=== PATIENT | male | born 1965 | race Caucasian/White ===

== ENCOUNTER 2020-03-05 14:55 | Outpatient (CLI) | payer OTHER, SELFPAY ==
--- NOTE | ~2020-03-05 | XR_ITS ---
EXAMINATION: XR hand RT min 3V INDICATION: Right wrist and hand pain TECHNIQUE: Three views of the right hand are obtained. COMPARISON: None available FINDINGS: Cortical irregularity is present in the distal aspect of the lateral scaphoid. There is wid ening of the scapholunate joint. There appears to be mild proximal migration of the capitate. Osteoar thritis is noted at the radioscaphoid articulation and at the triscaphe joint. Mild osteoarthritis is also noted in multiple interphalangeal joints as well as at the first through third metacarpophalang eal joints. IMPRESSION: 1. 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 Orthopedic evaluation is recom mended. Reviewed, dictated and finalized at location A. IMPRESSION: 1. 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 Orthoped ic evaluation is recommended.
--- NOTE | ~2020-03-05 | XR_ITS ---
EXAMINATION: XR wrist RT min 3V INDICATION: Right wrist pain and swelling TECHNIQUE: Four views of the right wrist are obtained. COMPARISON: None available FINDINGS: Cortical irregularity is present in the distal aspect of the lateral scaphoid. There is wid ening of the scapholunate joint. There appears to be mild proximal migration of the capitate. Osteoar thritis is noted at the radius scaphoid articulation and at the triscaphe joint. IMPRESSION: 1. 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 Orthopedic evaluation is recom mended. 2. Possible prior fracture of the distal scaphoid. Reviewed, dictated and finalized at location A. IMPRESSION: 1. 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 Orthoped ic evaluation is recommended. 2. Possible prior fracture of the distal scaphoid.
== END 2020-03-05 14:56 | disposition home or self-care (01) ==
LOC: CHSIMG 15:00
PROVIDERS: PCP Internal Medicine; Visit Provider Internal Medicine
DX: M25.531 Pain in right wrist (principal)
CPT/HCPCS: 73110; 73130

== ENCOUNTER → 2020-11-24 00:48 | Outpatient (CLI) | payer OTHER, SELFPAY ==
[2020-11-24 17:56] LABS: SARS-CoV-2 RNA PCR Negative
== END ==
PROVIDERS: PCP Internal Medicine; Visit Provider Surgery
DX: Z01.812 Encounter for preprocedural laboratory examination (principal); Z20.822 Contact with and (suspected) exposure to COVID-19
CPT/HCPCS: C9803; U0003; U0005

== ENCOUNTER 2020-11-28 00:57 | Day surgery (SDC) | payer OTHER, SELFPAY ==
[2020-11-15 14:02] VITALS: BMI 34.7
--- NOTE | 2020-11-27 13:09 | P.PNAN_ITS ---
Anes - Initial Pre Proc Eval Procedure: Operation Date: 11/28/20 07:30 Proposed Procedures p Ventral Hernia Repair with Mesh - Sonny Zhu DO Date/Time: 11/27/20 13:09 Surgeon: Sonny Zhu DO Pre Op Diagnosis: ventral hernia Patient Data Age: 55 Gender: M Height: 1.68 m Weight: 97.72 kg Allergies Allergy/AdvReac Type Severity Reaction Status Date / Time No Known Allergies Allergy Verified 11/15/20 14:01 Home Medications Medication Instructions Recorded Confirmed Type ibuprofen 200 mg tablet 200 mg PO Q6H PRN 03/26/20 11/28/20 History losartan 25 mg HS 11/15/20 11/28/20 History Patient hx anesthesia problems: none Family hx anesthesia problems: none [facility] Past Medical History Medical History (Updated 11/27/20 @ 13:10 by Alexis Rivera DO) Hypertension Scapholunate advanced collapse of right wrist Vision loss Surgical History Surgical History No pertinent past surgical history Family History Family History Father Diabetes mellitus Grandparent Cerebrovascular accident Leukemia Other Arthritis Cancer Hypertension Social History Social History Smoking status: Never smoker Second hand tobacco smoke exposure: No Alcohol intake: current Drinks per week: 2 Substance use: never Substance use type: does not use Living arrangements: with family Additional occupation/education comments: [employer] Gender identity (if verbalized by the patient): Male Spiritual care concerns: No Anes - Eval Final PreProcedure Day of Procedure 11/27/20 13:09 Patient weight: obese Heart: regular rate and rhythm Lungs: clear to auscultation and normal air movement Airway: Mallampati scale class II Neurological: alert and oriented Last oral intake: >/= 8 hours ASA classification: III Emergent: no Anesthetic plan: proceed Anesthesia type and monitoring: general ETT and standard monitoring Informed Consent: The patient's anesthetic plan and its attendant risks and benefits were discussed with the patient/family/POA. Questions were solicited and answers provided to the satisfaction of the patient/family/POA.
[2020-11-28] VITALS (7 sets, daily range): BP systolic 83–157; BP diastolic 46–95; PULSE 50–69; RESP 10–20; TEMP 36.2; O2SAT 98–100
[2020-11-28] MEDS: ACETAMINOPHEN 500 MG TABLET 1000 MG PO (06:28)
[2020-11-28] MEDS: LACTATED RINGERS 1,000 ML 30 ML IV CONT ×2 (06:30→08:59)
[2020-11-28] MEDS: KETOROLAC 15 MG/ML VIAL (*BKC) IV PUSH (06:38)
--- NOTE | 2020-11-28 07:10 | PM.IMHP ---
H&P: HPI History of Present Illness Date/Time: 11/28/20 07:10 Chief Complaint: Hernia Narrative: 55 yo man presents for hernia repair. Denies any changes since last seen in office. Review of Systems Review of Systems: All systems reviewed & are unremarkable except as noted in HPI and below Constitutional: Constitutional: Denies chills, Denies fever(s), Denies headache(s) and Denies weight loss Eyes: Eyes: Denies change in vision ENT: Denies dizziness, Denies headache(s), Denies neck mass and Denies throat swelling Cardiovascular: Cardiovascular: Denies chest pain, Denies lightheadedness and Denies dyspnea Respiratory: Respiratory: Denies cough, Denies dyspnea and Denies wheezing Gastrointestinal: Gastrointestinal: Denies abdominal pain, Denies change in bowel habits, Denies nausea and Denies vomiting Genitourinary: Genitourinary: Denies hematuria and Denies dysuria Musculoskeletal: Musculoskeletal: Reports as per HPI Integumentary/Breasts: Skin/Breast: Reports as per HPI Neurologic: Denies dizziness and Denies headache(s) Allergic/Immunologic: Allergic/Immunologic: Denies throat swelling and Denies wheezing [facility] Past Medical History Medical History (Updated 11/28/20 @ 07:12 by Sonny Zhu DO) Hypertension Scapholunate advanced collapse of right wrist Vision loss Surgical History Surgical History No pertinent past surgical history Family History Family History Father Diabetes mellitus Grandparent Cerebrovascular accident Leukemia Other Arthritis Cancer Hypertension Social History Social History Smoking status: Never smoker Second hand tobacco smoke exposure: No Alcohol intake: current Drinks per week: 2 Substance use: never Substance use type: does not use Living arrangements: with family Additional occupation/education comments: [employer] Gender identity (if verbalized by the patient): Male Spiritual care concerns: No Meds Home Medications and Allergies Home Medications Medication Instructions Recorded Confirmed Type ibuprofen 200 mg tablet 200 mg PO Q6H PRN 03/26/20 11/28/20 History losartan 25 mg HS 11/15/20 11/28/20 History Allergies Allergy/AdvReac Type Severity Reaction Status Date / Time No Known Allergies Allergy Verified 11/15/20 14:01 Exam Const: General: no acute distress and alert Orientation/consciousness: patient oriented x3 HENMT: Head: normocephalic and atraumatic Ears: hearing grossly normal bilaterally General nose exam: Normal nares present Mouth: Yes Normal oral and palatal mucosa present Eyes: Periorbital: periorbital findings normal Sclera: sclerae normal EOM: EOMs intact bilaterally Neck: Neck: normal visual inspection, no lymphadenopathy and trachea midline Chest: Chest palpation & inspection: normal inspection of the chest Resp: Effort & Inspection: normal respiratory effort Auscultation: clear to auscultation bilaterally Cardio: Jugular venous distension: no JVD Rate: regular rate Rhythm: regular rhythm Heart sounds: S1 normal heart sound present and S2 normal heart sound present Peripheral pulses: Peripheral pulses 2+ throughout GI: Inspection: normal to inspection GI Palp: Yes Soft to palpation, No Tenderness to palpation present (GI), No Guarding due to palpation present (GI), Yes Hernia present (Ventral hernia just inferior to umbilicus) and No Rebound tenderness present Percussion: Yes normal to percussion Auscultation: normal bowel sounds : General: Yes no CVA tenderness Back/Spine/Pelvis: Back: no CVA tenderness Neuro: General: patient oriented x3, no focal motor deficits and CN's II-XI intact bilaterally Cognition (Neuro): normal cognition Speech: normal speech Motor exam (neuro): 5/5 motor strength
--- NOTE | 2020-11-28 07:17 | WPDHPUPDATE1 ---
History and Physical Update Update Date/Time: 11/28/20 07:17 History and Physical has been reviewed, including an updated exam of the patient. There are NO changes in the patient's condition. Risks, benefits, and alternatives have been discussed and questions answered. Patient agrees to proceed with procedure.
[2020-11-28] MEDS: ceFAZolin 2 GM/D5W 50 ML 2 GM/50 ML BAG IVPB (07:23)
[2020-11-28] MEDS: BUPIVACAINE/EPINEPHRINE 0.5% 10 ML VIAL 50 ML INFILTRATE (07:58)
--- NOTE | 2020-11-28 08:30 | W.PM.PROC2 ---
Procedure Note - Detailed Date of Procedure 11/28/20 Pre-op Diagnosis ventral hernia Post-op Diagnosis same Procedure Performed Open ventral hernia repair with 6.6 cm Parietex ventral patch Surgeon Sonny Zhu, DO Anesthesia general and local (0.5% bupivacaine with epinephrine) Indications This is a 55-year-old man who presents with a bulge near his umbilicus that has been present for a couple years. This has gradually enlarged. He does have some discomfort in that area. Any reducible periumbilical ventral hernia was identified on physical exam. Discussions were made with the patient about treatment options and decision was made to proceed with open ventral hernia repair with mesh. Findings Open ventral hernia repair was performed. The patient was found to have a 15 mm hernia defect just inferior to the umbilical stalk. The hernia sac was reduced and a preperitoneal pocket was created for mesh placement. A 6.6 cm Parietex ventral patch was placed within the preperitoneal pocket. This was secured using 0 Ethibond U-stitch trans fascial sutures. No specimens were obtained for pathology. Description of Procedure Procedure as well as risks, benefits, and alternatives were discussed with the patient. Written consent was obtained and placed in chart prior to procedure. Patient was brought back to surgical suite. He was placed supine on operating table. He was then intubated by Anesthesia Department. His abdomen was prepped and draped in sterile fashion using chlorhexidine prep. 0.5% bupivacaine with epinephrine was infiltrated locally around the operative area. A 5 cm curvilinear incision was made just inferior to the umbilicus using a 15 blade scalpel. Electrocautery was used for hemostasis and for dissection down through the subcutaneous fat. Hernia sac was encountered and this was carefully freed up from surrounding subcutaneous fat using electrocautery. The hernia sac was freed up all the way down to the level of the fascia, and then it was transected using electrocautery. The hernia sac was reduced back into the abdominal cavity. The umbilical stalk was then lifted off of the fascia with electrocautery. The hernia defect was then measured. This was measuring approximately 15 mm. The decision was made to use a 6.6 cm Parietex ventral patch. The peritoneum was cleared under the fascia circumferentially around the hernia using blunt dissection and electrocautery. Once a wide enough pocket was created for the mesh, the mesh was then placed within this preperitoneal pocket and laid out flat centered on the hernia defect. The mesh appeared to be sitting in proper position. The mesh was then secured at the 4 corners using 0 Ethibond U-stitch trans fascial sutures. Once all 4 sutures were placed, the mesh was lifted up against the abdominal wall and appeared to be properly centered on the hernia defect. The fascia of the hernia defect was then reapproximated over the mesh using 0 Ethibond [id number] sutures. The 4 transfascial sutures were then tied down in place. The repair was inspected and appeared secure. 0.5% bupivacaine with epinephrine was infiltrated around the fascia and subcutaneous space. The umbilical stalk was then reapproximated to the fascia using a 3 0 Vicryl simple interrupted suture. The deep dermis was reapproximated using 3 0 Vicryl simple interrupted sutures, and then the skin was approximated using 4 Monocryl running subcuticular suture. Exofin glue was then applied on top. The patient was then awakened from anesthesia, extubated, and transferred to recovery. Implants 6.6 cm Parietex ventral patch Estimated Blood Loss 5 Complications No immediate complications Condition stable Disposition same day
== END 2020-11-28 10:12 | disposition home or self-care (01) ==
PROVIDERS: PCP Internal Medicine; Visit Provider Surgery
PROC: 0WQF0ZZ Repair Abdominal Wall, Open Approach (ICD-10-PCS; CPT 49560; principal; 2020-11-28 07:30)
DX: K43.9 Ventral hernia without obstruction or gangrene (principal); E66.9 Obesity, unspecified; Z68.33 Body mass index [BMI] 33.0-33.9, adult
CPT/HCPCS: 49560; 49568; A9270; C1781; C9803; J0690; J1100; J1200; J1885; J2250; J2370; J2405; J2704; J3010; J7120; U0003; U0005

== ENCOUNTER 2022-04-06 07:27 | Outpatient (CLI) | payer OTHER, SELFPAY ==
[2022-04-06 08:17] LABS: Appearance Urine Clear (Clear); Bilirubin Urine Negative (Negative); Blood Urine 2+ (Negative); Glucose Urine UA Negative (Negative); Ketones Urine Negative (Negative); Leukocyte Esterase Ur Negative (Negative); Nitrate Urine Negative (Negative); Protein Urine Negative (Negative); Urobilinogen Urine 0.2 mg/dL (0.2-1.0)
[2022-04-06 08:26] LABS: Add Urine Microscopic? YES; Color Urine Light Yellow (Yellow)
[2022-04-06 08:29] LABS: Alanine Aminotransferase 27 U/L (16-63); Albumin Level 3.9 g/dL (3.4-5.0); Alkaline Phosphatase 56 U/L (46-116); Anion Gap 8 mmol/L (8-16); Aspartate Amino Transferase 19 U/L (15-37); Bilirubin,Total 0.8 mg/dL (0.00-1.00); Blood Urea Nitrogen 19 mg/dL (7-18); Calcium 8.7 mg/dL (8.5-10.1); Carbon Dioxide 27 mmol/L (21-32); Chloride 105 mmol/L (98-108); Cholesterol 193 mg/dL (0-200); Estimated Glomerular Filt Rate > 60; Glucose 103 mg/dL (70-99); HDL Direct 48 mg/dL (40-60); LDL Cholesterol Calculated 132 mg/dL (<130); Osmolality Calculated 292 mOsm/kg (285-295); Potassium 4.1 mmol/L (3.5-5.1); Sodium 140 mmol/L (136-145); Total Protein 7.5 g/dL (6.4-8.2); Triglycerides 65 mg/dL (0-150)
== END 2022-04-06 07:28 | disposition home or self-care (01) ==
LOC: CHSLAB 07:32
PROVIDERS: PCP Internal Medicine; Visit Provider Internal Medicine
DX: I10 Essential (primary) hypertension (principal)
CPT/HCPCS: 36415; 80053; 80061; 81001

== ENCOUNTER 2023-06-29 09:04 | Outpatient (CLI) | payer OTHER, SELFPAY ==
[2023-06-29 09:19] LABS: Basophils Absolute Auto 0.06 K/mm3 (0.00-0.10); Basophils Percent Auto 0.5 % (0.0-1.0); Eosinophils Absolute Auto 0.73 K/mm3 (0.02-0.50); Eosinophils Percent Auto 6.2 % (1.0-6.0); Hematocrit 47.1 % (40.0-54.0); Hemoglobin 16.1 g/dL (14.0-18.0); Immature Granulocyte Absolute 0.03 K/mm3 (0.00-0.00); Immature Granulocyte Percent A 0.3 % (0.0-0.0); Lymphocytes Absolute Auto 3.42 K/mm3 (1.10-4.50); Lymphocytes Percent Auto 29.2 % (18.0-42.0); Mean Corpuscular HGB Conc 34.2 g/dL (32.0-36.0); Mean Corpuscular Hemoglobin 31.3 pg (27.0-31.0); Mean Corpuscular Volume 91.5 fL (78.0-102.0); Mean Platelet Volume 9.1 fl (8.7-11.0); Neutrophils Absolute Auto 6.8 K/mm3 (1.7-7.2); Neutrophils Percent Auto 57.8 % (50.0-70.0); Platelet Count Result 292 K/mm3 (150-420); Red Blood Count 5.15 M/mm3 (4.70-6.10); Red Cell Distribution Width 12.7 % (11.6-14.4); White Blood Count 11.7 K/mm3 (4.8-10.8)
[2023-06-29 09:21] LABS: Appearance Urine Clear (Clear); Bilirubin Urine Negative (Negative); Blood Urine 3+ (Negative); Color Urine Light Yellow (Yellow); Glucose Urine UA Negative (Negative); Ketones Urine Negative (Negative); Leukocyte Esterase Ur Negative (Negative); Nitrate Urine Negative (Negative); Protein Urine Negative (Negative); Specific Grav Ur 1.025 (1.010-1.020); Urobilinogen Urine 0.2 mg/dL (0.2-1.0)
[2023-06-29 09:36] LABS: Add Urine Microscopic? YES; Bacteria Urine Rare /hpf; WBC Urine 0-3 /hpf (0-3)
[2023-06-29 10:08] LABS: Alanine Aminotransferase 39 U/L (16-63); Alkaline Phosphatase 55 U/L (46-116); Anion Gap 9 mmol/L (8-16); Aspartate Amino Transferase 17 U/L (15-37); Bilirubin,Total 0.7 mg/dL (0.00-1.00); Blood Urea Nitrogen 16 mg/dL (7-18); Calcium 8.9 mg/dL (8.5-10.1); Carbon Dioxide 26 mmol/L (21-32); Chloride 101 mmol/L (98-108); Cholesterol 237 mg/dL (0-200); Estimated Glomerular Filt Rate > 60; Glucose 102 mg/dL (70-99); HDL Direct 47 mg/dL (40-60); LDL Cholesterol Calculated 155 mg/dL (<130); Osmolality Calculated 283 mOsm/kg (285-295); Potassium 4.5 mmol/L (3.5-5.1); Prostate Specific Antigen 1.7 ng/mL (< OR = 4.0); Sodium 136 mmol/L (136-145); Total Protein 7.2 g/dL (6.4-8.2); Triglycerides 176 mg/dL (0-150)
== END 2023-06-29 09:05 | disposition home or self-care (01) ==
LOC: CHSLAB 09:07
PROVIDERS: PCP Internal Medicine; Visit Provider Internal Medicine
DX: Z00.00 Encounter for general adult medical examination without abnormal findings (principal); I10 Essential (primary) hypertension; Z12.5 Encounter for screening for malignant neoplasm of prostate
CPT/HCPCS: 36415; 80053; 80061; 81001; 84153; 84443; 85025; G0103

== ENCOUNTER 2023-07-20 07:09 | Outpatient (CLI) | payer OTHER, SELFPAY ==
--- NOTE | ~2023-07-20 | XR_ITS ---
EXAMINATION: XR abdomen/kub 1V INDICATION: Microscopic hematuria TECHNIQUE: Supine views of the abdomen were obtained on 2 radiographs. COMPARISON: CT from the same date FINDINGS: Contrast from earlier CT partially opacifies the urinary tract. No hydronephrosis or hydrou reter. The small stones identified on the comparison CT are not definitely identified. The lung bases are clear. The bowel gas pattern is normal. IMPRESSION: 1. No radiographic correlate for the patient's symptoms. Known small bilateral kidney stones are not definitely identified. Reviewed, dictated and finalized at location L. [employer]
--- NOTE | ~2023-07-20 | CT_ITS ---
EXAMINATION: CT abdomen pelvis wo/w con DATE: 07/20/2023 09:20 INDICATION: Microscopic hematuria TECHNIQUE: Computed tomography (CT) of the abdomen and pelvis was performed without intravenous contr ast. CT of the abdomen and pelvis was then performed with a total of 130 mL Omnipaque 350 intravenous contrast using a double-bolus technique for simultaneous opacification of the renal parenchyma and r enal collecting system. The dose-length product (DLP) was 1934.18 mGy-cm. Automated exposure control and iterative reconstruction technique were employed. COMPARISON: None FINDINGS: The lung bases are clear. The heart size is normal. There is a 5 mm cyst of the right hepat ic lobe. The spleen, pancreas, gallbladder, and adrenal glands are normal. There is a 2.0 cm hemorrha gic cyst of the right kidney lower pole. Hypoattenuating lesions in the kidneys, measuring up to 6 mm on the left, are too small to characterize but likely represent cysts. There is a 10 mm simple cyst of the left kidney upper pole. There is a 10 mm proteinaceous cyst of the right mid kidney. There are four nonobstructing stones of the right kidney which measure up to 2 mm. There are four nonobstructi ng stones of the left kidney which measure up to 3 mm. There are no stones in the ureters or bladder. No hydronephrosis or hydroureter. No suspicious urothelial lesion is identified. No pathologically e nlarged abdominal or pelvic lymph nodes are identified. No free intraperitoneal gas or evidence of evelyn wel obstruction. There is a left inguinal hernia containing fat. Colonic diverticulosis is present wi thout evidence of diverticulitis. There is moderate lumbar spondylosis. IMPRESSION: 1. Bilateral nonobstructing nephrolithiasis. Reviewed, dictated and finalized at location L. [employer]
== END 2023-07-20 07:10 | disposition home or self-care (01) ==
LOC: CHSIMG 07:10
PROVIDERS: PCP Family Medicine; Visit Provider Nurse Practitioner Family
DX: R31.29 Other microscopic hematuria (principal); N20.0 Calculus of kidney
CPT/HCPCS: 74018; 74178; Q9967

== ENCOUNTER 2025-02-01 06:45 | Outpatient (CLI) | payer OTHER, SELFPAY ==
[2025-02-01 07:36] LABS: Add Urine Microscopic? YES; Appearance Urine Clear (Clear); Glucose Urine UA Negative (Negative); Leukocyte Esterase Ur Negative (Negative); Nitrate Urine Negative (Negative); Specific Grav Ur >= 1.030 (1.010-1.020)
[2025-02-01 07:37] LABS: Hematocrit 44.7 % (40.0-54.0); Hemoglobin 14.9 g/dL (14.0-18.0); Mean Corpuscular HGB Conc 33.3 g/dL (32-36); Mean Corpuscular Hemoglobin 29.9 pg (27.0-31.0); Mean Corpuscular Volume 89.8 fL (78.0-102.0); Platelet Count Result 282 K/mm3 (150-420); Red Blood Count 4.98 M/mm3 (4.70-6.10); White Blood Count 11.9 K/mm3 (4.8-10.8)
[2025-02-01 08:02] LABS: Alanine Aminotransferase 22 U/L (6-50); Albumin Level 4.5 g/dL (3.5-5.1); Alkaline Phosphatase 52 U/L (38-126); Anion Gap 8 mmol/L (4-12); Aspartate Amino Transferase 26 U/L (17-59); Bilirubin,Total 0.9 mg/dL (0.2-1.3); Blood Urea Nitrogen 19 mg/dL (9-20); Calcium 9.6 mg/dL (8.4-10.2); Carbon Dioxide 29 mmol/L (22-30); Chloride 106 mmol/L (98-107); Cholesterol 137 mg/dL (0-200); Estimated Glomerular Filt Rate > 60; Glucose 106 mg/dL (65-110); HDL Direct 40 mg/dL; Osmolality Calculated 298 mOsm/kg (285-295); Potassium 4.8 mmol/L (3.4-5.0); Sodium 143 mmol/L (137-145); Total Protein 7.1 g/dL (6.3-8.2); Triglycerides 118 mg/dL (<150)
[2025-02-01 08:34] LABS: Prostate Specific Antigen 2.0 ng/mL (< OR = 4.0); Thyroid Stimulating Hormone 1.310 uIU/mL (0.465-4.680)
== END 2025-02-01 06:46 | disposition home or self-care (01) ==
LOC: CHSLAB 06:46
PROVIDERS: PCP Internal Medicine; Visit Provider Internal Medicine
DX: Z00.00 Encounter for general adult medical examination without abnormal findings (principal); Z12.5 Encounter for screening for malignant neoplasm of prostate; E78.5 Hyperlipidemia, unspecified; I10 Essential (primary) hypertension
CPT/HCPCS: 36415; 80053; 80061; 81001; 84153; 84443; 85027; G0103